=== PATIENT | male | born 1950 | race Caucasian/White ===

== ENCOUNTER 2025-07-11 14:01 | Outpatient (CLI) | payer MEDICARE, OTHER ==
[2025-07-11 15:06] LABS: MEAN PLATELET VOLUME 7.2 FL (7.4-10.4); PRE OP HEMATOCRIT 27.0 % (42.0-52.0); PRE OP PLATELET COUNT 559 X10'3 (140-440); PRE OP WHITE BLOOD COUNT 12.6 10'3 (4.8-10.8); RED CELL DISTRIBUTION WIDTH 20.0 % (11.5-14.5)
[2025-07-11 15:08] LABS: LEUKOCYTE ESTERASE ,URINE NEGATIVE (Neg); NITRITES, URINE NEGATIVE (Neg); OCCULT BLOOD,URINE NEGATIVE (Neg)
[2025-07-11 15:11] LABS: PRE OP HEMOGLOBIN 8.1 g/dL (14.0-17.9)
[2025-07-11 15:17] LABS: UA COLLECTION TYPE NON-SPECIFIED
[2025-07-11 15:21] LABS: CREATININE 0.79 MG/DL (0.60-1.10); PRE OP ALT 27 U/L (30-65); PRE OP ANION GAP 12 (8-16); PRE OP AST 19 U/L (10-37); PRE OP BILIRUB, TOTAL 0.4 MG/DL (0.0-1.0); PRE OP GLUCOSE 116 MG/DL (70-104); PRE OP POTASSIUM 3.8 MMOL/L (3.4-5.1); PRE OP SODIUM 142 MMOL/L (135-145); TOTAL CARBON DIOXIDE 25.7 MMOL/L (24-32); eGFR > 90 ML/MIN
[2025-07-11 15:27] LABS: PLATELET ESTIMATE INCREASED
== END 2025-07-11 23:59 | disposition home or self-care (01) ==
LOC: LAB 14:01 → EDSTATUS 07-20 14:00
PROVIDERS: ATTEND Podiatrist Foot & Ankle Surgery
DX: Z01.812 Encounter for preprocedural laboratory examination (principal); M19.072 Primary osteoarthritis, left ankle and foot; M25.672 Stiffness of left ankle, not elsewhere classified; M21.6X2 Other acquired deformities of left foot
CPT/HCPCS: 80053; 81003; 85008; 85025

== ENCOUNTER 2025-10-17 07:50 | Day surgery (SDC) | payer MEDICARE, OTHER ==
[2025-10-11 11:49] LABS: LEUKOCYTE ESTERASE ,URINE NEGATIVE (Neg); NITRITES, URINE NEGATIVE (Neg); OCCULT BLOOD,URINE NEGATIVE (Neg)
[2025-10-11 11:49] LABS: MEAN PLATELET VOLUME 7.5 FL (7.4-10.4); PRE OP HEMATOCRIT 42.0 % (42.0-52.0); PRE OP HEMOGLOBIN 13.9 g/dL (14.0-17.9); PRE OP PLATELET COUNT 431 X10'3 (140-440); PRE OP WHITE BLOOD COUNT 9.5 10'3 (4.8-10.8); RED CELL DISTRIBUTION WIDTH 25.9 % (11.5-14.5)
[2025-10-11 11:50] LABS: UA COLLECTION TYPE NON-SPECIFIED
[2025-10-11 12:04] LABS: CREATININE 0.85 MG/DL (0.60-1.10); PRE OP ALT 26 U/L (30-65); PRE OP ANION GAP 10 (8-16); PRE OP AST 20 U/L (10-37); PRE OP BILIRUB, TOTAL 0.3 MG/DL (0.0-1.0); PRE OP GLUCOSE 119 MG/DL (70-104); PRE OP POTASSIUM 3.8 MMOL/L (3.4-5.1); PRE OP SODIUM 142 MMOL/L (135-145); TOTAL CARBON DIOXIDE 25.6 MMOL/L (24-32); eGFR 88 ML/MIN
[2025-10-11 12:55] LABS: PLATELET ESTIMATE NORMAL
[2025-10-17] VITALS (8 sets, daily range): BP systolic 108–142; BP diastolic 67–89; PULSE 57–64; RESP 8–16; TEMP 97.6; O2SAT 93–98
[~2025-10-17] VITALS: Ht 180.3 cm; Wt 86.0 kg
[2025-10-17] MEDS: ceFAZolin 2gm/dext,iso 50mL 50 ML IV ONE (05:30)
[~2025-10-17 07:50] MED LIST: ASCO-134 PO; CHOL500044 PO; COLLAGEN PO; MAGN400C PO; MORINGA PO; MULT-1085 PO; TURMERIC PO; VITA1TAB57 PO; ZINC220T3 PO; [UNRECOGNIZED DRUG - OTHER] PO; [UNRECOGNIZED DRUG - OTHER] PO; [UNRECOGNIZED DRUG - OTHER] PO; [UNRECOGNIZED DRUG - OTHER] PO
[2025-10-17] MEDS: ringers solution, lacted 1,000 ML IV SCH (08:24)
[2025-10-17] MEDS ORDERED: bacitracin 15gm ointment TP ONE (09:18)
[2025-10-17] MEDS ORDERED: BUPIVAcaine 2.5mg/ml inj 50ml vial (contains preservative) ONE (09:19)
[2025-10-17] MEDS ORDERED: morphine 4 MG/ML inj SYRINge IV PRN (10:20)
[2025-10-17] MEDS ORDERED: fentaNYL/PF 50MCG/1 ML 2ML syringe IV PRN ×2 (10:20)
[2025-10-17] MEDS ORDERED: ringers solution, lacted 1,000 ML IV SCH (10:20)
[2025-10-17] MEDS ORDERED: HYDROmorphone/PF 0.2 MG/ML SYRINGE IV PRN ×2 (10:20)
[2025-10-17] MEDS ORDERED: enalaprilat 1.25mg/ml 2ml vial IV PRN (10:20)
[2025-10-17] MEDS ORDERED: labetalol 20mg/4ml (5mg/ml) syringe IV PRN (10:20)
[2025-10-17] MEDS ORDERED: ondansetron/PF 4mg/2ml inj IV PRN (10:20)
[2025-10-17] MEDS ORDERED: MIDAZolam 1 MG/ML 5ML VIAL ONE (10:55)
[2025-10-17] MEDS ORDERED: fentaNYL/PF 50MCG/1 ML 2ML syringe ONE (10:55)
[2025-10-17] MEDS ORDERED: 0.9 % SODIUM CHLORIDE 10 ML VIAL ONE (11:24)
[2025-10-17] MEDS ORDERED: BUPIVAcaine/PF 7.5mg/ml (0.75%) 10ml vial ONE (11:24)
[2025-10-17] MEDS ORDERED: LIDOcaine 1%/PF 5ML 10 MG/ML VIAL ONE (11:24)
[2025-10-17] MEDS ORDERED: ROPIVAcaine 0.5% (5mg/ml) 30ml vial ONE (11:24)
[2025-10-17] MEDS ORDERED: propofol inj 20 ML IV ONE (11:24)
[2025-10-17] MEDS ORDERED: VANCOMYCIN/WATER FOR INJ (PEG) 1.5GM/300 ML IVPB IV ONE (11:45)
[2025-10-17] MEDS ORDERED: ROPIVAcaine 0.2% (10 MG/5 ML) BOLUS INJECTION POPLITEAL PRN (12:20)
--- NOTE | 2025-10-17 12:20 | ANESTHESIA RECORDS ---
Nerve Block Providers to CC ~ Diagnosis: Nerve Block requested by: ERNIE DALLAS DPAlfredo Neuraxial/Peripheral Nerve Block requested for Post-operative analgesia by Physician above DIAGNOSIS: Post-operative pain. (Body Area) Shoulder: [ ] Arm: [ ] Hand: [ ] Hip: [ ] Knee: [ ] Ankle: [ Left ] Foot: [ ] Leg: [ Left lower leg ] Abdomen: [ ] Other: [ ] Post-operative pain expected to be/is inadequately managed by oral or IV medicines. Regional anesthetic expected to facilitate rehabilitation and/or discharge from facility. Other:[ _] Procedure Performed: Femoral / Saphenous: Left Popliteal Lateral: Left Time out Done?: Yes Time of Time out: 10:48 Procedure Details: PROCEDURE DETAILS: Risks, benefits and alternatives explained Informed consent obtained, and patient wishes to proceed Conscious sedation with indicated monitors Patient positioned, pertinent anatomy defined, sterile technique used Needle used: [ ] 3 1/8 inch Stimuplex Ultra 22ga [x ] 4 inch Stimuplex Ultra 20ga [ ] 6 inch Stimuplex Ultra 20ga [ ] 6 inch, Quikbloc over the needle catheter set 20ga [x ] 4 inch Quikbloc over the needle catheter set 20ga [ ]Other: [ ] Loss of twitch @ [____0.4 ]mA [x ] Single Injection & [x ] Catheter Ultrasound Guidance Used: [x ] Yes [ ] No Attempts:[ once ] Medicines injected: [ x ]Clonidine Amt:[ 100 mcgs ] [ x ]Dexamethasone Amt:[____4 mgs ] [x ]Ropivacaine Amt:[____0.5% 30 cc ] [x ]Bupivacaine Amt:[____0.3% 16 cc ] [ ]Lidocaine Amt:[ ] [ ]Exparel 1.33%:[ ] [ ]Epinephrine Amt[ ] [ ]Other: [ ] Intermittent aspiration during local anesthetic administration No symptoms of intraneural or intravenous injection Patient tolerated procedure well Comments Left Popliteal fossa Block Continuous nerve block catheter Insertion Pt in Rt lateral position with Left Leg flexed at 90 Degrees. Lateral approach. Ultrasound probe placed back of thigh 2 inches above the knee joint. Done under sterile conditions. Easy visualization of the Sciatic nerve. 1% xylocaine local anesthetic. Easy visualization of Spreading of local anesthetic anterior and posterior to the Sciatic nerve. Catheter tip left posterior to sciatic nerve in perineural location at the bifurcation of the nerve and catheter well secured. Meaningful conversation t throughout. No Pain or discomfort during injection. Lt Adductor Canal blk Procedure done before surgery under General anesthesia. Pt supine with Lt leg rotated to Lt slightly. Easy visualization of Adductor Canal with ultra sound anterolateral to Femoral artery at the junction of upper and middle third of thigh. Able to see the tip of the needle and injected local anesthetic with the ultrasound. VIVIAN TROTTER MD Oct 17, 2025 12:20
[2025-10-17] MEDS ORDERED: dexamethasone sod phosphate 4mg/ml inj. ONE (13:15)
[2025-10-17] MEDS ORDERED: ondansetron/PF 4mg/2ml inj ONE (13:15)
[2025-10-17] MEDS: bacitracin 15gm ointment TP ONE (13:30)
[2025-10-17] MEDS: ROPIVAcaine 0.2%/PF PUMP/bolus 545 ML POPLITEAL SCH (14:54)
--- NOTE | 2025-10-18 01:51 | OPERATIVE REPORT ---
DATE OF SURGERY: 10/17/2025 DICTATING PHYSICIAN: ERNIE ARELLANO DPM PREOPERATIVE DIAGNOSES: Left ankle osteoarthritis, left ankle deformity, left ankle valgus, and left ankle pain. POSTOPERATIVE DIAGNOSES: Left ankle osteoarthritis, left ankle deformity, left ankle valgus, and left ankle pain. PROCEDURES: * Total ankle arthroplasty with implant. * Stress examination under fluoroscopic imaging. SURGEON: Ernie Arellano DPM BELLOWS ASSEMBLER: Dr. Rey Contreras DPM fellow, assistance was needed to decrease tourniquet time, help with deficiency and retraction throughout the entirety of the procedure. ANESTHESIA: General anesthesia. HEMOSTASIS: Thigh tourniquet at 300 mmHg. FINDINGS: None. COMPLICATIONS: None. SPECIMENS: None. ESTIMATED BLOOD LOSS: Less than 20 mL. HARDWARE: We used a [employer] 14, 14, 16, size 3 tibia, a size 12 talar polyethylene component, and then a size 2 talus. INDICATIONS: The patient presented to the office with the above-listed complaints which have been unresponsive to conservative treatment options. Thus, surgical options have been offered along with all potential risks, complications, and surgical outcomes being fully explained to the patient understanding. No guarantees were given. Clinical and radiographic data correlate with the above diagnosis. DESCRIPTION OF PROCEDURE: The patient was brought to the operating room and placed on the operating table in the supine position. The patient was induced under general anesthesia. The foot and ankle were prepped and draped in the usual aseptic fashion. Previously applied thigh tourniquet was inflated to 300 mmHg after a timeout was called and preoperative antibiotics were dosed appropriately. Total ankle arthroplasty with implant. We then brought our attention to the anterior aspect of the patient's left ankle where a standard linear incision approximately 10-12 cm in length was then made using a #15 blade. We carefully dissected down to the level of the subcutaneous tissue with care being taken to identify and retract all vital neurovascular structures. After this, we then carefully dissected down to the level of deep fascia. We opened up the extensor retinaculum and the border in between the TA and EHL was then identified and we protected the neurovascular bundle throughout the entirety of the procedure. We dissected the ankle joint out into the operative field. It was noted that the patient had severe osteoarthritis with loss of cartilage. The patient also had a valgus incongruent ankle. We then loosened up the soft tissue in order to balance the ankle radiographically until this was neutral. After this was neutral, we then pinned our tibiotalar joint appropriately. After this, we then placed our [employer] INBONE cutting block and guide and jig on the patient's ankle. We then used the sales representative supervisor in the room in the director new product's guidelines with fluoroscopic imaging in order to isolate where we needed to be. We noted that a size 14 top, 14 mid, and 16 base was going to be appropriate. We then reamed and cut and it was noted that a size 3 tibia was going to be the most appropriate. We did this while we were balancing the ankle. After this, we then held the patient's talus into an appropriate position and we cut out the deformity appropriately. It was noted that a size 2 talus was going to be the most appropriate as well. We then impacted the components into the talus and the tibia until these were appropriately aligned. We then used the polyethylene trials. A size 10 was used and we stressed the ankle using fluoroscopic imaging. There was still some instability medially and laterally using the stress examination under fluoroscopic imaging by physician, so therefore, we went up to a size 12 polyethylene component and this created more tension to the ligaments and it was noted that there was excellent stability of all 3 planes of the ankle. The patient had excellent dorsiflexion, so we decided not to do the gastrocnemius recession as well. After this, final fluoroscopic imaging was taken. We cleaned out the gutters medially and laterally until there was no impingement. We then flushed our incisions with copious amounts of sterile normal saline. We closed in a layered fashion. The extensor retinaculum was closed with an 0 Vicryl. Skin was closed with the 3-0 Vicryl in the subcutaneous tissue and then 3-0 nylon was used in a simple interrupted suture technique for skin. After this, the incision was then dressed with triple antibiotic followed by Adaptic, 4x4s, and Webril. The patient was placed in a well-padded posterior splint with the foot held at neutral position. The tourniquet was deflated. The patient was taken out of general anesthesia. The patient was taken to PACU with vital signs stable and vascular status intact to the operative foot. The patient is going to be nonweightbearing to the operative foot and was instructed to follow up with me in approximately 2 weeks after surgery. The entire case was performed in a teaching fashion. I was available pre and postoperatively to answer questions of the patient and his family. ERNIE ARELLANO DPM TID: [id number] RECEIPT: [id number] GS/DIV
== END 2025-10-17 15:09 | disposition home or self-care (01) ==
LOC: PAS 07:50
PROVIDERS: ATTEND Podiatrist Foot & Ankle Surgery
DX: M19.072 Primary osteoarthritis, left ankle and foot (principal); M21.6X2 Other acquired deformities of left foot; M21.072 Valgus deformity, not elsewhere classified, left ankle; M25.572 Pain in left ankle and joints of left foot; G89.18 Other acute postprocedural pain; Z79.891 Long term (current) use of opiate analgesic; Z98.890 Other specified postprocedural states
CPT/HCPCS: 27702; 36415; 64445; 64447; 73600; 80053; 81003; 82948; 85025; A4618; A6223; A6253; A6402; A6449; A7000; C1713; C1776; J1100; J2250; J2405; J2704; J2795; J3010; J3490; J7030; J7120; Z7506; Z7508; Z7512; Z7610; 76000; 85008